=== PATIENT | female | born 2000 | race Caucasian/White ===

== ENCOUNTER 2019-09-04 14:20 | Outpatient (RCR) | payer BC | END 2019-12-03 | disposition home or self-care (01) | LOC: MKS.ESL.PT | DX: R10.2 Pelvic and perineal pain (principal) ==

== ENCOUNTER 2021-08-01 15:00 | Outpatient (RCR) | payer OTHER | END 2021-08-04 | disposition still patient (30) | LOC: WSPT | DX: M35.7 Hypermobility syndrome (principal); M24.9 Joint derangement, unspecified ==

== ENCOUNTER 2022-02-01 06:37 | Emergency (ER) | payer SELFPAY ==
[~2022-02-01] VITALS: Ht 170.2 cm; Wt 79.5 kg
[~2022-02-01 06:37] MED LIST: OMNICEF 300MG300 MG PO; ZOFRAN ODT4 MG PO
[2022-02-01 07:34] LABS: HEMOGLOBIN 13.5 g/dl (12.5-16.0); MEAN CELL VOLUME 87 fl (80.0-100.0); MEAN CORPUSCULAR HEMOGLOBIN 29 pg (27-31); MEAN CORPUSCULAR HGB CONC 33 g/dl (33.0-37.0); MEAN PLATELET VOLUME 10.4 fl (7.4-10.4); PLATELET COUNT 267 K/mm3 (130-400); RED BLOOD COUNT 4.74 M/mm3 (4.10-5.30)
[2022-02-01 07:54] LABS: ALBUMIN 3.4 gm/dL (3.5-5.0); BILIRUBIN,TOTAL 1.3 mg/dL (0.2-1.2); CALCIUM 9.2 mg/dL (8.4-10.2); CREATININE, serum 1.16 mg/dL (0.57-1.11); POTASSIUM 3.6 mmol/L (3.5-4.5); TOTAL PROTEIN 7.4 gm/dL (6.2-8.1)
[2022-02-01 08:03] LABS: BAND 14 % (0-10); LYMPHOCYTE 3 % (20.0-51.0); NEUTROPHILS 74 % (42.0-75.2); PLATELET ESTIMATE NORMAL (NORMAL)
[2022-02-01] MEDS ORDERED: CIPRO 500MG TA500 MG PO (09:11)
[2022-02-01 10:04] VITALS: BP 130/68; PULSE 97; TEMP 98.4
== END 2022-02-01 10:10 | disposition home or self-care (01) ==
LOC: COL.ER 06:37
PROVIDERS: Emergency Medicine
DX: N12 Tubulo-interstitial nephritis, not specified as acute or chronic (principal); D72.829 Elevated white blood cell count, unspecified; N32.89 Other specified disorders of bladder; N28.89 Other specified disorders of kidney and ureter
CPT/HCPCS: J0696; J2405; J3010; J7030; Q9967